=== PATIENT | male | born 1980 | race Caucasian/White ===

== ENCOUNTER 2016-09-16 20:50 | Emergency (ER) | payer OTHER ==
[~2016-09-16] VITALS: Ht 177.8 cm; Wt 100.0 kg
[2016-09-16 21:04] VITALS: BP 133/68; PULSE 69; RESP 16; TEMP 97.9; O2SAT 98
[2016-09-16 21:50] LABS: AUTOMATED NEUTROPHIL # 6.7 TH/MM3 (1.8-7.7); BASOPHIL # 0.1 TH/MM3 (0-0.2); BASOPHIL % 1.1 % (0.0-2.0); EOSINOPHIL # 0.2 TH/MM3 (0-0.4); EOSINOPHIL % 2.1 % (0.0-4.0); HEMATOCRIT 48.6 % (39.0-51.0); HEMO FLAGS DIFF FINAL; LYMPH % 29.8 % (9.0-44.0); LYMPHOCYTE # 3.3 TH/MM3 (1.0-4.8); MEAN CELL VOLUME 88.4 FL (80.0-100.0); MEAN CORPUSCULAR HEMOGLOBIN 30.1 PG (27.0-34.0); MONO % 6.2 % (0.0-8.0); NEUT % 60.8 % (16.0-70.0); PLATELET COUNT 255 TH/MM3 (150-450); RED BLOOD COUNT 5.49 MIL/MM3 (4.50-5.90); RED CELL DISTRIBUTION WIDTH 13.8 % (11.6-17.2); WHITE BLOOD COUNT 11.1 TH/MM3 (4.0-11.0)
[2016-09-16 21:55] LABS: AMPHETAMINE, URINE NEG (NEG); BARBITURATES, URINE NEG (NEG); COCAINE, URINE POS (NEG)
[2016-09-16 22:22] LABS: ANION GAP 11 MEQ/L (5-15)
[2016-09-16 22:26] LABS: ALKALINE PHOSPHATASE 96 U/L (45-117); ALT (GPT) 40 U/L (12-78); AST (GOT) 35 U/L (15-37); BICARBONATE 24.2 MEQ/L (21.0-32.0); BLOOD UREA NITROGEN 7 MG/DL (7-18); CHLORIDE 107 MEQ/L (98-107); GLOMERULAR FILTRATION RATE 60 ML/MIN (>89); POTASSIUM 3.7 MEQ/L (3.5-5.1); SODIUM (NA) 142 MEQ/L (136-145); TOTAL BILIRUBIN ADULT 0.3 MG/DL (0.2-1.0)
--- NOTE | 2016-09-16 22:37 | PD ---
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 He reports smoking marijuana and doing cocaine on Naz. He states he doesn't remember doing cocaine and he says he is going to retirement. He is not allowed to see his children anymore and that is why he wants to commit suicide. He says he doesn't want to talk about it. Denies homicidal ideations. Denies auditory or visual hallucinations. Reports alcohol use daily for the past few days. Reports history of schizoaffective disorder and anxiety. He said he has not taken his anxiety medications for 3 weeks and has been having chest pain on and off. He denies chest pain at this time. Denies fever, chills , nausea, vomiting. Denies shortness of breath, abdominal pain, change in urine or stool. Allergies to Haldol and penicillin. No other modifying factors or associated signs and symptoms. PFSH Past Medical History Arthritis: Yes Asthma: No Autoimmune Disease: No Blood Disorders: No Bipolar Disorder: Yes Anxiety: Yes Depression: Yes Heart Rhythm Problems: No Cancer: No Cardiovascular Problems: No High Cholesterol: No Chemotherapy: No Chest Pain: No Congestive Heart Failure: No COPD: No Cerebrovascular Accident: No Diabetes: No Diminished Hearing: No Endocrine: No Gastrointestinal Disorders: No GERD: No Glaucoma: No Genitourinary: No Hepatitis: No Hiatal Hernia: No Hypertension: Yes ("SOMETIMES") Immune Disorder: No Implanted Vascular Access Dvce: No Kidney Stones: No Musculoskeletal: No Neurologic: No Psychiatric: Yes Reproductive: No Respiratory: Yes (URI) Immunizations Current: Yes Migraines: No Myocardial Infarction: No Radiation Therapy: No Renal Failure: No Seizures: No Sickle Cell Disease: No Sleep Apnea: No Thyroid Disease: No Ulcer: No Tetanus Vaccination: < 5 Years Influenza Vaccination: No PNEUMOCCOCAL Vaccine (Year): 3 Past Surgical History Abdominal Surgery: No AICD: No Appendectomy: No Arteriovenous Shunt: No Cardiac Surgery: No Cholecystectomy: No Ear Surgery: Yes Endocrine Surgery: No Eye Surgery: No Genitourinary Surgery: No Gynecologic Surgery: No Insulin Pump: No Joint Replacement: No Neurologic Surgery: No Oral Surgery: Yes (TONSILLECTOMY 85) Pacemaker: No Thoracic Surgery: No Tonsillectomy: Yes Tympanostomy Tube: Yes Other Surgery: Yes Social History Alcohol Use: Yes Tobacco Use: Yes Substance Use: No Allergies-Medications (Allergen,Severity, Reaction): Coded Allergies: Penicillin (Verified Allergy, Severe, Anaphylaxis, 09/16/16) Haldol (Verified Allergy, Mild, JAW "LOCKS UP", 09/16/16) Reported Meds & Prescriptions Reported Meds & Active Scripts Active No Active Prescriptions or Reported Medications Review of Systems Except as stated in HPI: all other systems reviewed are Neg Physical Exam Narrative GENERAL: Well-nourished, well-developed male patient, in no acute distress SKIN: Warm and dry. HEAD: Atraumatic. Normocephalic. EYES: Pupils equal and round. ENT: Mucosa pink and moist. NECK: Supple. Trachea midline. CARDIOVASCULAR: Regular rate and rhythm. No murmur appreciated. RESPIRATORY: No accessory muscle use. Clear to auscultation. Breath sounds equal bilaterally. GASTROINTESTINAL: Abdomen soft, non-tender, nondistended. Hepatic and splenic margins not palpable. Bowel sounds are active 4 quadrants. MUSCULOSKELETAL: No obvious deformities. No clubbing. No cyanosis. No edema. NEUROLOGICAL: Awake and alert. Oriented 3. No obvious cranial nerve deficits. Motor grossly within normal limits. Normal speech. Moves all extremities. 5/5 strength to all extremities. PSYCHIATRIC: No delusional thought processes. No hallucinations. Data Data Last Documented VS Vital Signs Date Time Temp Pulse Resp B/P Pulse Ox O2 Delivery O2 Flow Rate FiO2 09/16/16 21:04 97.9 69 16 133/68 98 Orders Complete Blood Count With Diff (09/16/16 21:04) Comprehensive Metabolic Panel (09/16/16 21:04) Drug Screen, Random Urine (09/16/16 21:04) Alcohol (Ethanol) (09/16/16 21:04) Psych Screen (09/16/16 21:04) Electrocardiogram (09/16/16 22:29) Labs Laboratory Tests Test 09/16/16 21:00 White Blood Count 11.1 TH/MM3 Red Blood Count 5.49 MIL/MM3 Hemoglobin 16.5 GM/DL Hematocrit 48.6 % Mean Corpuscular Volume 88.4 FL Mean Corpuscular Hemoglobin 30.1 PG Mean Corpuscular Hemoglobin 34.0 % Concent Red Cell Distribution Width 13.8 % Platelet Count 255 TH/MM3 Mean Platelet Volume 9.2 FL Neutrophils (%) (Auto) 60.8 % Lymphocytes (%) (Auto) 29.8 % Monocytes (%) (Auto) 6.2 % Eosinophils (%) (Auto) 2.1 % Basophils (%) (Auto) 1.1 % Neutrophils # (Auto) 6.7 TH/MM3 Lymphocytes # (Auto) 3.3 TH/MM3 Monocytes # (Auto) 0.7 TH/MM3 Eosinophils # (Auto) 0.2 TH/MM3 Basophils # (Auto) 0.1 TH/MM3 CBC Comment DIFF FINAL Differential Comment Sodium Level 142 MEQ/L Potassium Level 3.7 MEQ/L Chloride Level 107 MEQ/L Carbon Dioxide Level 24.2 MEQ/L Anion Gap 11 MEQ/L Blood Urea Nitrogen 7 MG/DL Creatinine 1.35 MG/DL Estimat Glomerular Filtration 60 ML/MIN Rate Random Glucose 88 MG/DL Calcium Level 8.4 MG/DL Total Bilirubin 0.3 MG/DL Aspartate Amino Transf 35 U/L (AST/SGOT) Alanine Aminotransferase 40 U/L (ALT/SGPT) Alkaline Phosphatase 96 U/L Total Protein 7.9 GM/DL Albumin 4.2 GM/DL Urine Opiates Screen NEG Urine Barbiturates Screen NEG Urine Amphetamines Screen NEG Urine Benzodiazepines Screen NEG Urine Cocaine Screen POS Urine Cannabinoids Screen POS Ethyl Alcohol Level 224 MG/DL MDM Medical Decision Making Medical Screen Exam Complete: Yes Emergency Medical Condition: Yes Medical Record Reviewed: Yes Differential Diagnosis Medical clearance for psych evaluation, suicidal ideation, suicidal threat Narrative Course 36-year-old male under Young act. Reports having chest pain intermittently on and off for the last 3 weeks since he has not been on his anxiety medications. He says chest pain is related to his anxiety. He was positive for cocaine and marijuana and felt a drug test for his transit authority police officer and is not allowed to see his kidney were not definitely wants to commit suicide. Vital signs stable. I spoke with Dr. Way, my attending physician, and she recommended EKG. Labs ordered. Psych screen ordered. EKG ordered. 2235: Positive for cocaine and cannabinoids. Ethyl alcohol 224. CBC unremarkable. BMP unremarkable. 2246: EKG with normal sinus rhythm; no ST elevation or depression. Patient presents under a Young act. Physical examination and vital signs are essentially unremarkable. Patient has no medical complaints to report. Psych screen has been ordered. If the laboratory results are unremarkable, the patient will be medically cleared for psychiatric evaluation and disposition. Diagnosis Primary Impression: Medical clearance for psychiatric admission Scripts No Active Prescriptions or Reported Meds Condition: Stable Zaida Ambrose Sep 16, 2016 22:37
[2016-09-17 03:16] VITALS: BP 136/75; PULSE 68; RESP 18; TEMP 97.3; O2SAT 99
--- NOTE | 2016-09-17 09:48 | EKG ---
Date Performed: 09/16/2016 Time Performed: 22:43:36 PTAGE: 36 years EKG: Sinus rhythm POSSIBLE INFERIOR MYOCARDIAL INFARCTION BORDERLINE ECG NO SIGNIFICANT CHANGE FROM PRIOR ELECTROCARDI OGRAM. PREVIOUS TRACING : 09/27/2013 03.55 DOCTOR: Harvey Cortez Interpretating Date/Time 09/17/2016 09:46:38
== END 2016-09-17 06:01 ==
LOC: NEPJ 20:50
DX: R45.851 Suicidal ideations (principal); R07.9 Chest pain, unspecified; F25.9 Schizoaffective disorder, unspecified; F31.9 Bipolar disorder, unspecified; R94.31 Abnormal electrocardiogram [ECG] [EKG]; F41.9 Anxiety disorder, unspecified; I10 Essential (primary) hypertension; Z72.0 Tobacco use
CPT/HCPCS: 80053; 80307; 80320; 85025; 93005

== ENCOUNTER 2018-11-10 05:19 | Inpatient (IN) ==
--- NOTE | 2018-11-10 05:37 | ED ---
HPI General Chief complaint: Respiratory Symptoms Stated complaint: SOB/cough blood Time Seen by Provider: 11/10/18 05:35 Source: patient Mode of arrival: ambulatory Limitations: no limitations History of Present Illness HPI narrative: 38-year-old male patient with history of bipolar disorder, smoking, presents to the ER today because he states that this morning he woke up coughing and coughed up small amounts of blood. He coughed into the toilet about 1 teaspoon of blood. He states now he is having some blood-tinged sputum. He has had several days history of coughing. He also reports some chest discomfort and dizziness. He denies any fevers or other symptoms. Modifying Factors: None Associated Signs & Symptoms: Coughing up blood Risk Factors: None Related Data Home Medications Medication Instructions Recorded Confirmed No Known Home Medications 08/28/18 11/10/18 Allergies Allergy/AdvReac Type Severity Reaction Status Date / Time haloperidol Allergy Severe JAW "LOCKS Verified 11/10/18 05:25 UP" penicillin G Allergy Severe Anaphylaxis Verified 11/10/18 05:25 Review of Systems ROS: all other systems reviewed are negative [facility] Medical History Medical History Bipolar disorder (Acute) Surgical History Surgical History No history of previous surgery (Acute) Social History Social History Substance History: No History of Abuse Second Hand Smoke Exposure: No Smoking Status: Current every day smoker Tobacco Type: Cigarettes How Often Do You Have a Drink Containing Alcohol: Never Recent Travel in [facility] within the Last 8 Weeks: No Recent Out of Country Travel within the Last 8 Weeks: No Immunization History Tetanus Immunization: Unsure Exam Narrative Exam Narrative: GENERAL: Well-developed young male patient currently and mild distress. Awake and oriented x3. SKIN: Focused skin assessment warm/dry. HEAD: Atraumatic. Normocephalic. EYES: Pupils equal and round. No scleral icterus. No injection or drainage. ENT: No nasal bleeding or discharge. Mucous membranes pink and moist. NECK: Trachea midline. No JVD. CARDIOVASCULAR: Regular rate and rhythm. No murmur appreciated. RESPIRATORY: No accessory muscle use. Mild wheezing bilaterally. Breath sounds equal bilaterally. GASTROINTESTINAL: Abdomen soft, non-tender, nondistended. Hepatic and splenic margins not palpable. MUSCULOSKELETAL: No obvious deformities. No clubbing. No cyanosis. No edema. NEUROLOGICAL: Awake and alert. No obvious cranial nerve deficits. Motor grossly within normal limits. Normal speech. PSYCHIATRIC: Appropriate mood and affect; insight and judgment normal. Course Initial Documented Vital Signs Temperature 98.3 F 11/10/18 05:28 Pulse Rate 72 11/10/18 05:28 Respiratory Rate 24 11/10/18 05:28 Blood Pressure 153/87 H 11/10/18 05:28 Pulse Oximetry 98 11/10/18 05:28 Last Documented Vital Signs Temperature 98.3 F 11/10/18 05:28 Pulse Rate 79 11/10/18 07:20 Respiratory Rate 18 11/10/18 07:20 Blood Pressure 117/60 11/10/18 07:20 Pulse Oximetry 98 11/10/18 07:20 Sign Out Sign Out Data: Patient Sign Out occurred on 11/10/18 at 07:16. Patient's care was discussed, and care was transferred from Deni Hilario MD to Shashi Cárdenas MD. Sign Out Comment: Case is signed out to Dr. Cárdenas at 7 AM awaiting for CTA. Likely will need admission for pneumonia and elevated troponin. Last updated by Deni Hilario MD at 11/10/18 07:05 Post-Handoff Eval: Patient care assumed by me Dr. Cárdenas from Dr. Dunlap at 07 100, is a 38-year-old male presented to the emergency department with cough a minimal amount of hemoptysis. I was asked to follow-up with CT PE protocol. CT PE protocol is negative for pulmonary embolism but does show multilobar pneumonia on the right side. Patient actually appears well, does have an elevated white count 13,000 with 81.8% neutrophils. Blood cultures were drawn and sent patient was started on Rocephin and azithromycin. Patient does have a minimal elevation in troponin to 0.06 but is not had any chest pain EKG shows no signs of active ischemia. Discussed with the patient recommended observation in the hospital for his multilobar pneumonia and elevated troponin. Medical Decision Making MDM Narrative Medical decision making narrative: Chest x-ray shows signs of possible airspace disease versus pneumonia, and d-dimer was elevated. PE study was ordered for further evaluation. Medical Screen Exam Complete: Yes Emergency Medical Condition: Yes Differential Diagnosis Differential Diagnosis: URI versus bronchitis versus pneumonia versus PE Lab Data Lab results reviewed: Yes I reviewed the patient's lab results. Result diagrams: 11/10/18 05:40 11/10/18 05:40 Lab Results 11/10/18 11/10/18 11/10/18 Range/Units 05:40 05:40 05:40 WBC 13.1 H (4.0-11.0) th/mm3 RBC 5.05 (4.50-5.90) mil/mm3 Hgb 16.0 (13.0-17.0) gm/dL Hct 46.0 (39.0-51.0) % MCV 91.0 (80.0-100.0) fL MCH 31.6 (27.0-34.0) pg MCHC 34.7 (32.0-36.0) % RDW 13.4 (11.6-17.2) % Plt Count 215 (150-450) th/mm3 MPV 8.4 (7.0-11.0) fL Neut % (Auto) 81.8 H (16.0-70.0) % Lymph % (Auto) 8.3 L (9.0-44.0) % [place] % (Auto) 9.0 H (0.0-8.0) % Eos % (Auto) 0.4 (0.0-4.0) % Baso % (Auto) 0.5 (0.0-2.0) % Neut # (Auto) 10.7 H (1.8-7.7) th/mm3 Lymph # (Auto) 1.1 (1.0-4.8) th/mm3 [place] # (Auto) 1.2 H (0.0-0.9) th/mm3 Eos # (Auto) 0.1 (0.0-0.4) th/mm3 Baso # (Auto) 0.1 (0.0-0.2) th/mm3 WBC Differential . Differential Comment Auto diff final D-Dimer Quant (PE/DVT) 0.84 H (0.00-0.50) mg/L FEU Sodium 136 (136-145) meq/L Potassium 3.9 (3.5-5.1) meq/L Chloride 105 (98-107) meq/L Carbon Dioxide 22.2 (21.0-32.0) meq/L Anion Gap 9 (5-15) meq/L BUN 11 (7-18) mg/dL Creatinine 0.87 (0.60-1.30) mg/dL Estimated GFR Greater than 89 (>89) mL/min Random Glucose 100 (74-106) mg/dL Calcium 8.8 (8.5-10.1) mg/dL Total Bilirubin 0.5 (0.2-1.0) mg/dL AST 54 H (15-37) U/L ALT 57 (12-78) U/L Alkaline Phosphatase 76 (45-117) U/L Troponin I 0.06 H (0.02-0.05) ng/mL Total Protein 7.2 (6.4-8.2) g/dL Albumin 3.7 (3.4-5.0) g/dL Imaging Data Attestation: I personally reviewed and interpreted this imaging study as follows : Radiologist's impression: Chest X-Ray 11/10/18 05:35 CONCLUSION: Patchy right perihilar airspace disease. Differential diagnosis includes bronchopneumonia and hemorrhage in patient with hemoptysis. Chest CTA 11/10/18 06:20 CONCLUSION: 1. Consolidative infiltrate in the right upper lobe and right lower lobe. The differential diagnosis remains pneumonia and/or hemorrhage in a patient with hemoptysis. 2. No evidence of pulmonary embolism. Discharge Plan Discharge Disposition Patient Disposition: ED Admit(ED Internal Use Only) Discharge Order Discharge Orders: ED Use Only Admit Order (Routine); Ordered 11/10/18 Ordered By: Shashi Cárdenas Physicians Team ED Provider: Shashi Cárdenas Primary Care Provider: Primary Care Monie Corral Attending Provider: Tony Neal Discharge Interventions Interventions: Vital Signs Last Done: 11/10/18 07:20 Status ED Status: Admitted Observation Patient
[2018-11-10 05:53] LABS: Baso # (Auto) 0.1 th/mm3 (0.0-0.2); Baso % (Auto) 0.5 % (0.0-2.0); Eos # (Auto) 0.1 th/mm3 (0.0-0.4); Eos % (Auto) 0.4 % (0.0-4.0); Lymph # (Auto) 1.1 th/mm3 (1.0-4.8); Lymph % (Auto) 8.3 % (9.0-44.0); Mean Corpuscular HGB Conc 34.7 % (32.0-36.0); Mean Corpuscular Hemoglobin 31.6 pg (27.0-34.0); Mean Platelet Volume 8.4 fL (7.0-11.0); Mono # (Auto) 1.2 th/mm3 (0.0-0.9); Neut # (Auto) 10.7 th/mm3 (1.8-7.7); Neut % (Auto) 81.8 % (16.0-70.0); Platelet Count 215 th/mm3 (150-450); Red Blood Count 5.05 mil/mm3 (4.50-5.90); Red Cell Distribution Width 13.4 % (11.6-17.2); White Blood Count 13.1 th/mm3 (4.0-11.0)
--- NOTE | 2018-11-10 05:59 | XR ---
EXAM DATE: 11/10/2018 5:54 AM EST AGE/SEX: 38 years / Male INDICATIONS: Coughing up blood since last night. CLINICAL DATA: This is the patient's initial encounter. Patient reports that signs and symptoms have been present for 1 day and indicates a pain score of 5/10. MEDICAL/SURGICAL HISTORY: None. None. COMPARISON: No prior exams available for comparison. FINDINGS: Patchy right perihilar airspace disease. Differential diagnosis includes pneumonia and hemorrhage. Le ft lung clear. No effusion. No pneumothorax. CONCLUSION: Patchy right perihilar airspace disease. Differential diagnosis includes bronchopneumonia and hemorrh age in patient with hemoptysis. Electronically signed by: Roby Lopez MD Board Certified Radiologist 11/10/2018 5:57 AM EST
[2018-11-10 06:12] LABS: Albumin 3.7 g/dL (3.4-5.0); Anion Gap 9 meq/L (5-15); Aspartate Aminotransferase 54 U/L (15-37); Blood Urea Nitrogen 11 mg/dL (7-18); Calcium 8.8 mg/dL (8.5-10.1); Carbon Dioxide 22.2 meq/L (21.0-32.0); Chloride 105 meq/L (98-107); Glomerular Filtration Rate Greater Than 89 mL/min (>89); Glucose,Random 100 mg/dL (74-106); Potassium 3.9 meq/L (3.5-5.1); Sodium 136 meq/L (136-145)
[2018-11-10 06:14] LABS: Alanine Aminotransferase 57 U/L (12-78)
[2018-11-10 06:17] LABS: Alkaline Phosphatase 76 U/L (45-117); Total Protein 7.2 g/dL (6.4-8.2); Troponin I 0.06 ng/mL (0.02-0.05)
--- NOTE | 2018-11-10 07:11 | CT ---
EXAM DATE: 11/10/2018 7:05 AM EST AGE/SEX: 38 years / Male INDICATIONS: Cough and chest pain for one week. Hemoptysis. CLINICAL DATA: This is the patient's initial encounter. Patient reports that signs and symptoms have been present for 1 week and indicates a pain score of 5/10. MEDICAL/SURGICAL HISTORY: None. None. RADIATION DOSE: 10.55 CTDI (mGy) COMPARISON: . TECHNIQUE: Volumetric scanning was performed using a multi-row detector CT scanner during bolus infu michaela of 75 ml Omnipaque 350 (iohexol) nonionic water-soluble contrast as a single exam dose. The yolie a was post processed with a variety of visualization algorithms including full volume maximum intensi ty projection and sliding thin slab reformation. Using automated exposure control and adjustment of t he mA and/or kV according to patient size, radiation dose was kept as low as reasonably achievable to obtain optimal diagnostic quality images. DICOM format image data is available electronically for r eview and comparison. FINDINGS: Pulmonary Arteries: No filling defects are seen in the pulmonary arteries out to the subsegmental ve ssels. The left and right pulmonary arteries are normal in diameter. Lung: Consolidative infiltrate is present in the right upper lobe and right lower lobe as noted on t he plain film examination. The left lung is clear. Effusion: None. Mediastinum: No evidence of mediastinal or hilar adenopathy. Other: The axilla is unremarkable. CONCLUSION: 1. Consolidative infiltrate in the right upper lobe and right lower lobe. The differential diagnosis remains pneumonia and/or hemorrhage in a patient with hemoptysis. 2. No evidence of pulmonary embolism. Electronically signed by: Corby Lange MD Board Certified Radiologist 11/10/2018 7:10 AM EST
[2018-11-10] MEDS ORDERED: Acetaminophen 325 MG Tablet PO PRN (08:55)
[2018-11-10] MEDS ORDERED: Bisacodyl 10 MG Supp RECTAL PRN (08:55)
[2018-11-10] MEDS: Senna/Docusate Sodium 8.6/50 MG Tablet PO SCH ×2 (09:03→22:42)
--- NOTE | 2018-11-10 09:13 | P.HPIM ---
History of Present Illness Primary Care Physician: No Primary Care Physician Chief Complaint: cough with blood stained phlegm History of Present Illness: 38 yo M with no known medical illness who presented to ER c/o cough x1 week and blood stained sputum x1 day. Patient reports being well until a week ago when he developed cough which was productive of yellowish sputum, associated with chills but no fever. Last night he coughed up blood tinged sputum about a tea spoon He has associated rt sided chest pain on breathing. He has some shortness of breath. Some sick contact with flu like symptoms a week prior. He has no joint or muscle pains. No nausea/vomiting or diarrhea. No change in bowel habits. He smokes 1ppd cigarettes and uses marijuana as well. ROS is negative except as stated above. On presentation to ER, VSS labs significant for mild leucocytosis of 13, CT chest revealed RUL and RLL pneumonia. Patient was started on IV Levofloxacin. Review of Systems Review of Systems: all other systems reviewed are negative [facility] Medical History Medical History Bipolar disorder (Acute) Surgical History Surgical History No history of previous surgery (Acute) Social History Social History Substance History: No History of Abuse Second Hand Smoke Exposure: No Smoking Status: Current every day smoker Tobacco Type: Cigarettes How Often Do You Have a Drink Containing Alcohol: Never Recent Travel in [facility] within the Last 8 Weeks: No Recent Out of Country Travel within the Last 8 Weeks: No Immunization History Tetanus Immunization: Unsure Medications and Allergies Allergies Allergy/AdvReac Type Severity Reaction Status Date / Time haloperidol Allergy Severe JAW "LOCKS Verified 11/10/18 05:25 UP" penicillin G Allergy Severe Anaphylaxis Verified 11/10/18 05:25 Home Medications Medication Instructions Recorded Confirmed Type No Known Home Medications 08/28/18 11/10/18 History Active Medications: Active Medications Acetaminophen (Tylenol) 650 mg PO Q4H PRN PRN Reason: Temp > 100.4 Al Hydroxide/Mg Hydroxide (Milk Of Magnesia Liq) 30 ml PO Q12H PRN PRN Reason: Mild Constipation Bisacodyl (Dulcolax Supp) 10 mg RECTAL DAILY PRN PRN Reason: SEVERE CONSITIPATION Levofloxacin/Dextrose (Levaquin 750 Mg Premix Inj) 150 mls @ 100 mls/hr IV.SIG ONCE ONE Stop: 11/10/18 09:05 Last Admin: 11/10/18 07:54 Dose: 100 mls/hr Levofloxacin/Dextrose (Levaquin 750 Mg Premix Inj) 150 mls @ 100 mls/hr IV.SIG Q24H BOBBY Lactulose (Lactulose Liq) 30 ml PO DAILY PRN PRN Reason: SEVERE CONSITIPATION Ondansetron HCl (Zofran Inj) 4 mg IV.PUSH Q6H PRN PRN Reason: NAUSEA OR VOMITING Senna/Docusate Sodium (Zohreh-Colace) 1 tab PO BID BOBBY Sennosides (Senokot) 17.2 mg PO Q12H PRN PRN Reason: Moderate Constipation Sodium Chloride (Ns Flush) 2 ml IV.FLUSH BID BOBBY Sodium Chloride (Ns Flush) 2 ml IV.FLUSH PRN PRN PRN Reason: FLUSH AFTER USING IV ACCESS Physical Exam Vital signs: Vital Signs 11/10/18 05:28 11/10/18 05:42 11/10/18 05:44 Temperature 98.3 F Pulse Rate 72 72 Respiratory Rate 24 Blood Pressure 153/87 H Pulse Oximetry 98 98 11/10/18 05:54 11/10/18 07:20 Temperature Pulse Rate 72 79 Respiratory Rate 18 18 Blood Pressure 117/60 Pulse Oximetry 98 Intake & Output 11/09/18 11/10/18 11/10/18 18:59 06:59 18:59 Weight 113.398 kg Narrative: GENERAL: young man,well developed in no distress, laying in bed. HEENT:not pale,anicteric. CARDIOVASCULAR: Regular rate and rhythm without murmurs, gallops, or rubs. RESPIRATORY: Some bronchial breath sounds RLL, Otherwise chest is clear.No wheezes, rales, or rhonchi. GASTROINTESTINAL: Abdomen soft, non-tender, nondistended. Normal active bowel sounds MUSCULOSKELETAL: Extremities without clubbing, cyanosis, or edema. NEURO: Alert & Oriented x4 to person, place, time, situation. Moves all ext x4 Results Labs CBC & Chem 7: 11/10/18 05:40 11/10/18 05:40 Imaging Impressions Chest X-Ray 11/10/18 05:35 CONCLUSION: Patchy right perihilar airspace disease. Differential diagnosis includes bronchopneumonia and hemorrhage in patient with hemoptysis. Chest CTA 11/10/18 06:20 CONCLUSION: 1. Consolidative infiltrate in the right upper lobe and right lower lobe. The differential diagnosis remains pneumonia and/or hemorrhage in a patient with hemoptysis. 2. No evidence of pulmonary embolism. Caprini VTE Risk Assessment Caprini VTE Risk Assessment: No/Low Risk (score <= 1) Caprini Risk Assessment Model: Point Value = 1 Point Value = 2 Point Value = 3 Point Value = 5 Age 41-60 Minor surgery BMI > 25 kg/m2 Swollen legs Varicose veins or History of unexplained or recurrent spontaneous Oral contraceptives or hormone replacement Sepsis (< 1 month) Serious lung disease, including pneumonia (< 1 month) Abnormal pulmonary function Acute myocardial infarction Congestive heart failure (< 1 month) History of inflammatory bowel disease Medical patient at bed rest Age 61-74 Arthroscopic surgery Major open surgery (> 45 min) Laparoscopic surgery (> 45 min) Malignancy Confined to bed (> 72 hours) Immobilizing plaster cast Central venous access Age >= 75 History of VTE Family history of VTE Factor V Leiden Prothrombin [id number] Lupus anticoagulant Anticardiolipin antibodies Elevated serum homocysteine Heparin-induced thrombocytopenia Other congenital or acquired thrombophilia Stroke (< 1 month) Elective arthroplasty Hip, pelvis, or leg fracture Acute spinal cord injury (< 1 month) Prophylaxis Regimen: Total Risk Factor Score Risk Level Prophylaxis Regimen 0-1 Low Early ambulation 2 Moderate Order ONE of the following: *Sequential Compression Device (SCD) *Heparin 5000 units SQ BID 3-4 Higher Order ONE of the following medications: *Heparin 5000 units SQ TID *Enoxaparin/Lovenox 40 mg SQ daily (WT < 150 kg, CrCl > 30 mL/min) *Enoxaparin/Lovenox 30 mg SQ daily (WT < 150 kg, CrCl > 10-29 mL/min) *Enoxaparin/Lovenox 30 mg SQ BID (WT < 150 kg, CrCl > 30 mL/min) AND/OR *Sequential Compression Device (SCD) 5 or more Highest Order ONE of the following medications: *Heparin 5000 units SQ TID (Preferred with Epidurals) *Enoxaparin/Lovenox 40 mg SQ daily (WT < 150 kg, CrCl > 30 mL/min) *Enoxaparin/Lovenox 30 mg SQ daily (WT < 150 kg, CrCl > 10-29 mL/min) *Enoxaparin/Lovenox 30 mg SQ BID (WT < 150 kg, CrCl > 30 mL/min) AND *Sequential Compression Device (SCD) Assessment and Plan Plan 38 yo M presenting with 1 week h/o productive cough and 1 day of blood tinged sputum found to have rt multilobar pneumonia. RUL/RLL Community acquired pneumonia- send sputum culture,follow up blood cultures. check flu panel. Continue on IV Levofloxacin keep on prn nebs, and prn O2 by nasal canula if sats <90. DVT ppx-low risk, ambulate.
--- NOTE | 2018-11-10 17:22 | ECG ---
Date Performed: 11/10/2018 Time Performed: 07:23:31 PTAGE: 38 years EKG: Sinus rhythm BORDERLINE ECG PREVIOUS TRACING : 09/16/2016 22.43 DOCTOR: Reggie Garcia Interpretating Date/Time 11/10/2018 17:21:00
[2018-11-11] MEDS: Senna/Docusate Sodium 8.6/50 MG Tablet PO SCH ×2 (08:45→21:41)
--- NOTE | 2018-11-11 10:27 | P.PNIM ---
Subjective Interval history: feeling well. cough is improving. Physical Exam Vital signs: Vital Signs 11/10/18 12:30 11/10/18 16:00 11/10/18 18:41 Temperature 98.5 F Pulse Rate 64 71 Respiratory Rate 18 16 Blood Pressure 119/68 151/71 H Pulse Oximetry 97 96 96 11/10/18 20:00 11/10/18 21:50 11/10/18 21:55 Temperature 98 F 98.8 F Pulse Rate 66 72 Respiratory Rate 18 18 Blood Pressure 134/83 134/83 Pulse Oximetry 96 96 96 11/11/18 00:40 11/11/18 04:10 11/11/18 08:00 Temperature 98.8 F 98.6 F 97.8 F Pulse Rate 72 62 63 Respiratory Rate 20 18 18 Blood Pressure 158/88 H 126/71 134/78 Pulse Oximetry 95 96 97 Intake & Output 11/10/18 11/11/18 11/11/18 18:59 06:59 18:59 Intake Total 150 / 150 1180 / 1180 150 / 150 Balance 150 / 150 1180 / 1180 150 / 150 Weight 113.398 kg Intake: IV 150 / 150 150 / 150 Levaquin 750 mg Premix Inj 150 150 / 150 150 / 150 ML @ 100 mls/hr IV.SIG Q24H [facility] Rx#:[id number] Oral 1180 / 1180 Other: # Voids 1 2 Weight On Admission 113.398 kg Narrative: GENERAL: young man,well developed in no distress, laying in bed. HEENT:not pale,anicteric. CARDIOVASCULAR: Regular rate and rhythm without murmurs, gallops, or rubs. RESPIRATORY: Some bronchial breath sounds RLL, Otherwise chest is clear.No wheezes, rales, or rhonchi. GASTROINTESTINAL: Abdomen soft, non-tender, nondistended. Normal active bowel sounds MUSCULOSKELETAL: Extremities without clubbing, cyanosis, or edema. NEURO: Alert & Oriented x4 to person, place, time, situation. Moves all ext x4 Results Labs CBC & Chem 7: 11/10/18 05:40 11/10/18 05:40 Labs: Microbiology 11/10/18 07:35 Blood - Peripheral Anaerobic Blood Culture - Preliminary gram positive cocci 11/10/18 10:55 Nasal Wash Influenza Types A,B Antigen - Final Negative for FLU A and B antigen Infection due to influenza A or B cannot be ruled out since the antigen present in the sample may be below the detection limit of the test. 11/10/18 08:30 Sputum - Expectorated Sputum Gram Stain - Final Assessment and Plan Plan 38 yo M presenting with 1 week h/o productive cough and 1 day of blood tinged sputum found to have rt multilobar pneumonia. RUL/RLL Community acquired pneumonia- sputum culture pending blood cultures 1 bottle growing gram positive cocci in pairs and clusters,? contaminant.patient does not appear septic. repeat blood cultures. flu negative. Continue on IV Levofloxacin keep on prn nebs, and prn O2 by nasal canula if sats <90. DVT ppx-low risk, ambulate. Progress Note: Quality VTE Deep Vein Thrombosis/Pulmonary Embolism Present on Admission: No
[2018-11-12] MEDS: Senna/Docusate Sodium 8.6/50 MG Tablet PO SCH ×2 (09:47→20:57)
[2018-11-12 12:51] LABS: Baso # (Auto) 0.1 th/mm3 (0.0-0.2); Baso % (Auto) 0.8 % (0.0-2.0); Eos # (Auto) 0.2 th/mm3 (0.0-0.4); Hematocrit 46.1 % (39.0-51.0); Hemoglobin 15.8 gm/dL (13.0-17.0); Lymph # (Auto) 1.6 th/mm3 (1.0-4.8); Lymph % (Auto) 20.4 % (9.0-44.0); Mean Corpuscular HGB Conc 34.4 % (32.0-36.0); Mean Corpuscular Hemoglobin 31.4 pg (27.0-34.0); Mean Corpuscular Volume 91.4 fL (80.0-100.0); Mean Platelet Volume 8.4 fL (7.0-11.0); Mono # (Auto) 0.7 th/mm3 (0.0-0.9); Mono % (Auto) 9.1 % (0.0-8.0); Neut # (Auto) 5.3 th/mm3 (1.8-7.7); Neut % (Auto) 66.7 % (16.0-70.0); Platelet Count 252 th/mm3 (150-450); Red Blood Count 5.04 mil/mm3 (4.50-5.90); Red Cell Distribution Width 13.8 % (11.6-17.2)
--- NOTE | 2018-11-12 13:57 | P.PNIM ---
Subjective Interval history: patient reports feeling well.cough has improved. Physical Exam Vital signs: Vital Signs 11/11/18 16:00 11/11/18 20:00 11/11/18 21:50 Temperature 98.5 F Pulse Rate 64 69 Respiratory Rate 18 18 Blood Pressure 136/82 113/57 L Pulse Oximetry 96 99 96 11/12/18 08:00 11/12/18 12:00 Temperature 97.4 F L 97.6 F Pulse Rate 59 L 63 Respiratory Rate 16 14 Blood Pressure 116/70 122/63 Pulse Oximetry 97 96 Intake & Output 11/11/18 11/12/18 11/12/18 18:59 06:59 18:59 Intake Total 150 / 150 480 / 480 150 / 150 Balance 150 / 150 480 / 480 150 / 150 Weight 113.5 kg Intake: IV 150 / 150 150 / 150 Levaquin 750 mg Premix Inj 150 150 / 150 150 / 150 ML @ 100 mls/hr IV.SIG Q24H [facility] Rx#:[id number] Oral 480 / 480 Other: # Voids 2 Narrative: GENERAL: young man,well developed in no distress, laying in bed. HEENT:not pale,anicteric. CARDIOVASCULAR: Regular rate and rhythm without murmurs, gallops, or rubs. RESPIRATORY: Some bronchial breath sounds RLL, Otherwise chest is clear.No wheezes, rales, or rhonchi. GASTROINTESTINAL: Abdomen soft, non-tender, nondistended. Normal active bowel sounds MUSCULOSKELETAL: Extremities without clubbing, cyanosis, or edema. NEURO: Alert & Oriented x4 to person, place, time, situation. Moves all ext x4 Results Labs CBC & Chem 7: 11/12/18 12:05 11/10/18 05:40 Labs: Microbiology 11/10/18 08:30 Sputum - Expectorated Sputum Gram Stain - Final 11/10/18 08:30 Sputum - Expectorated Sputum Sputum Culture - Final Heavy growth normal respiratory enedelia 11/10/18 07:50 Blood - Peripheral Aerobic Blood Culture - Preliminary No growth in 2 days 11/10/18 07:50 Blood - Peripheral Anaerobic Blood Culture - Preliminary Staphylococcus coag negative 11/11/18 14:04 Blood - Other Aerobic Blood Culture - Preliminary No growth in 1 day 11/11/18 14:04 Blood - Other Anaerobic Blood Culture - Preliminary No growth in 1 day 11/11/18 13:59 Blood - Other Aerobic Blood Culture - Preliminary No growth in 1 day 11/11/18 13:59 Blood - Other Anaerobic Blood Culture - Preliminary No growth in 1 day 11/10/18 07:35 Blood - Peripheral Aerobic Blood Culture - Preliminary No growth in 2 days 11/10/18 07:35 Blood - Peripheral Anaerobic Blood Culture - Preliminary Staphylococcus epidermidis Assessment and Plan Plan 38 yo M presenting with 1 week h/o productive cough and 1 day of blood tinged sputum found to have rt multilobar pneumonia. RUL/RLL Community acquired pneumonia- clinically improving. flu negative. sputum culture negative. Anaerobic blood cultures bottle Staph epidermidis.A second blood culture bottle from 11/10 reported as Coag negative staph.? contaminant patient does not appear septic. repeat blood cultures from 11/11 negative in 24hr. I suspect the contaminants in the 2 bottles. I discussed with lab, typing for 2 +ve bottle won't be ready until tomorrow. D/w ID Dr. Kendrick,recommend to await typing of 2nd bottle to determine whether contaminant or not. Continue on IV Levofloxacin keep on prn nebs, and prn O2 by nasal canula if sats <90. DVT ppx-low risk, ambulate. possible discharge on 11/13 Progress Note: Quality VTE Deep Vein Thrombosis/Pulmonary Embolism Present on Admission: No
[2018-11-13 12:08] VITALS: BP 128/75; PULSE 66; RESP 15; TEMP 97.7; O2SAT 99
--- NOTE | 2018-11-13 16:04 | P.DS ---
Date of admission: 11/11/18 10:51 Primary care physician: No Primary Care Physician Brief History from admission: 38 y/o CM with no known PMhx who presented to ER c/o cough x1 week and blood stained sputum x1 day. Patient reported being well until a week ago when he developed cough which was productive with yellowish sputum, associated with chills but no fever. Patient also reports right sided chest pain w/ breathing with some shortness of breath. +Smoker. On presentation to ER, VSS labs significant for mild leucocytosis of 13, CT chest revealed RUL and RLL pneumonia. Patient was started on IV Levofloxacin. DS: Diagnosis - Discharge Diagnosis (1) Pneumonia involving right lung Status: Acute DS: Medications - Discharge Medications Prescriptions: levofloxacin [Levaquin] 750 mg PO DAILY 3 Days #3 tab DS: Summary Hospital Course: 1. RUL/RLL Community Acquired Pneumonia Patient was treated with IV Levofloxacin until the day of D/C. CT CHEST showed: Consolidative infiltrate in the right upper lobe and right lower lobe. Other labs drawn included- Flu negative, sputum culture negative. Of note, Anaerobic blood cultures bottle Staph epidermidis x2 on 11/10, likely contaminant as patient did not appear septic, other 2 Bld Cx from 11/10 NG at 3days. Repeat blood cultures from 11/11 negative x2 days. Case D/W ID Dr. Kendrick on 11/12. Patient was discharged with stable vital signs and on room air to complete Levaquin PO x 3 days (total of 5 days of ABX). F/U with PCP in 1week. - Time Spent with Patient Total time spent providing and/or coordinating discharge services: Greater than 30 minutes - Quality: VTE Deep Vein Thrombosis/Pulmonary Embolism Present on Admission: No Exam Vital signs: Vital Signs 11/12/18 17:30 11/12/18 20:00 11/12/18 20:08 Temperature 98 F Pulse Rate 62 72 Respiratory Rate 16 18 Blood Pressure 119/68 Pulse Oximetry 95 98 11/13/18 08:00 11/13/18 12:00 Temperature 97.8 F 97.7 F Pulse Rate 56 L 66 Respiratory Rate 16 15 Blood Pressure 130/82 128/75 Pulse Oximetry 98 99 Intake & Output 11/12/18 11/13/18 11/13/18 18:59 06:59 18:59 Intake Total 150 / 150 240 / 240 Balance 150 / 150 240 / 240 Weight 113.5 kg Intake: IV 150 / 150 Levaquin 750 mg Premix Inj 150 150 / 150 ML @ 100 mls/hr IV.SIG Q24H [facility] Rx#:[id number] Oral 240 / 240 Other: # Voids 2 2 Date of Last Bowel Movement 11/12/18 11/12/18 Narrative: GENERAL: well nourished male, in NAD, lying in bed, father at bedside SKIN: Warm and dry. HEAD: Normocephalic. EYES: No scleral icterus. No injection or drainage. NECK: Supple, trachea midline. No JVD or lymphadenopathy. CARDIOVASCULAR: Regular rate and rhythm without murmurs, gallops, or rubs. RESPIRATORY: Breath sounds equal bilaterally. No accessory muscle use. GASTROINTESTINAL: Abdomen soft, non-tender, nondistended. MUSCULOSKELETAL: No cyanosis, or edema. BACK: Nontender without obvious deformity. No CVA tenderness. Results Procedures completed during hospitalization: N/A Completed studies during hospitalization: CT CHEST Labs on day of discharge: Preliminary micro results at discharge 11/10/18 07:50 Aerobic Blood Culture - Preliminary Blood - Peripheral No growth in 3 days 11/10/18 07:35 Aerobic Blood Culture - Preliminary Blood - Peripheral No growth in 3 days 11/11/18 14:04 Aerobic Blood Culture - Preliminary Blood - Other No growth in 2 days Anaerobic Blood Culture - Preliminary No growth in 2 days 11/11/18 13:59 Aerobic Blood Culture - Preliminary Blood - Other No growth in 2 days Anaerobic Blood Culture - Preliminary No growth in 2 days - Impressions ITS Impressions Chest X-Ray 11/10/18 05:35 CONCLUSION: Patchy right perihilar airspace disease. Differential diagnosis includes bronchopneumonia and hemorrhage in patient with hemoptysis. Chest CTA 11/10/18 06:20 CONCLUSION: 1. Consolidative infiltrate in the right upper lobe and right lower lobe. The differential diagnosis remains pneumonia and/or hemorrhage in a patient with hemoptysis. 2. No evidence of pulmonary embolism. Discharge Plan - Discharge Disposition Patient Disposition: Discharge Home - Discharge Condition Condition: Stable - Discharge Order Discharge Orders: Discharge Order (Routine); Ordered 11/13/18 Ordered By: Lissette Clemente ED Use Only Admit Order (Routine); Ordered 11/10/18 Ordered By: Shashi Cárdenas - Physicians Team Primary Care Provider: Primary Care Monie Corral Attending Provider: Lissette Clemente
== END 2018-11-13 17:58 | disposition home or self-care (01) | DRG 194 ==
LOC: NEDA 05:19 → NEPD 05:19 → NEDH 11:06 → NEPHCDU 15:14 → N04 11-11 18:40
PROVIDERS: ADMIT Family Medicine; ATTEND Family Medicine
CPT/HCPCS: 71010; 71045; 71275; 80053; 84484; 85025; 85379; 86403; 87040; 87070; 87077; 87149; 87186; 87205; 87275; 87276; 87804; 90765; 93005; 94640; 94664; 94665; 96365; 96366; 99285; G0378; J1956; Q9967